=== PATIENT | male | born 1970 | race African-American/Black ===

== ENCOUNTER 2016-11-09 11:20 | Emergency (ER) | payer MEDICAID ==
[~2016-11-09] VITALS: Ht 180.3 cm; Wt 109.0 kg
[~2016-11-09 11:20] MED LIST: BENA20TA3; HCTZ
[2016-11-09 11:29] VITALS: BP 150/99
== END 2016-11-09 13:28 | disposition home or self-care (01) ==
LOC: ER 11:29
DX: S01.512A Laceration without foreign body of oral cavity, initial encounter (principal); S01.511A Laceration without foreign body of lip, initial encounter; I10 Essential (primary) hypertension; F17.200 Nicotine dependence, unspecified, uncomplicated; Y08.89XA Assault by other specified means, initial encounter; Y93.89 Activity, other specified; Y92.89 Other specified places as the place of occurrence of the external cause; Y99.8 Other external cause status
CPT/HCPCS: 99283

== ENCOUNTER 2017-07-11 03:38 | Emergency (ER) | payer MEDICAID ==
[~2017-07-11] VITALS: Ht 180.3 cm; Wt 117.0 kg
[2017-07-11] MEDS ORDERED: IPRATROPIUM BROMIDE (0.02%) 0.5MG/2.5ML NEB HHN STA (04:26)
[2017-07-11] MEDS ORDERED: ALBUTEROL (0.083%) 2.5MG/3ML NEB HHN STA (04:26)
[2017-07-11] MEDS ORDERED: PREDNISONE 20MG TABLET PO STA (04:26)
[2017-07-11] MEDS ORDERED: IPRATROPIUM/ALBUTEROL 0.5-3(2.5)MG/3ML NEB ONE (04:40)
[2017-07-11] MEDS ORDERED: ALBUTEROL (0.5%) 2.5MG/0.5ML NEB HHN ONE (04:40)
[2017-07-11 06:24] VITALS: BP 160/88
== END 2017-07-11 06:24 | disposition home or self-care (01) ==
LOC: ER 03:40
DX: J40 Bronchitis, not specified as acute or chronic (principal); J45.909 Unspecified asthma, uncomplicated; I10 Essential (primary) hypertension; F17.200 Nicotine dependence, unspecified, uncomplicated
CPT/HCPCS: 71010; 94640; 99283; J7512; J7611; J7620

== ENCOUNTER 2017-12-16 17:05 | Emergency (ER) | payer MEDICAID ==
[~2017-12-16] VITALS: Ht 170.2 cm; Wt 114.0 kg
[2017-12-16 17:25] VITALS: BP 149/105
[2017-12-19] MEDS ORDERED: PULM50 HHN (12:01)
[2017-12-19] MEDS ORDERED: COR12 PO (12:01)
[2017-12-19] MEDS ORDERED: BENA20TA3 PO (12:01)
== END 2017-12-16 22:09 | disposition left against medical advice (07) ==
LOC: ER 20:43
DX: R06.02 Shortness of breath (principal); R05 Cough; R07.89 Other chest pain
CPT/HCPCS: 93005; 99283

== ENCOUNTER 2018-03-28 16:52 | Emergency (ER) | payer MEDICAID, OTHER ==
[~2018-03-28] VITALS: Ht 180.3 cm; Wt 115.0 kg
[~2018-03-28 16:52] MED LIST changes: +BENA20TA10 PO; -BENA20TA3; +COR12 PO; -HCTZ; +PULM50 HHN
[2018-03-28 18:45] LABS: HEMATOCRIT. 43.2 % (42.0-52.0); HEMOGLOBIN. 14.4 g/dL (14.0-18.0); MEAN CORPUSCULAR HEMOGLOBIN 30.7 pg (28.0-32.0); MEAN CORPUSCULAR VOLUME 92.1 fL (80.0-94.0); MEAN PLATELET VOLUME 8.9 fl (7.4-10.4); PLATELET 194 x1000/uL (130-400); RED BLOOD CELL COUNT 4.69 mill/uL (4.7-6.1); RED CELL DISTRIBUTION WIDTH 14.2 % (11.6-14.6)
[2018-03-28] MEDS ORDERED: FUROSEMIDE 40MG/4ML VIAL IVP ONE (18:45)
[2018-03-28] MEDS ORDERED: METHYLPREDNISOLONE SOD SUCC 125 MG/2 ML VIAL IV ONE (18:45)
[2018-03-28] MEDS ORDERED: IPRATROPIUM/ALBUTEROL 0.5-3(2.5)MG/3ML NEB HHN ONE (18:45)
[2018-03-28 18:48] LABS: CHLORIDE 104 mEq/L (98-107)
[2018-03-28 18:52] LABS: INR 1.2; PARTIAL THROMBOPLASTIN TIME 25.7 sec (23.4-31.0); PROTHROMBIN TIME 11.7 sec (9.1-11.1)
[2018-03-28 19:15] LABS: PLATELET ESTIMATE NORMAL
[2018-03-28 20:55] VITALS: BP 128/90
== END 2018-03-28 20:58 | disposition home or self-care (01) ==
LOC: ER 16:52 → CANBEDREQ 22:27
DX: J44.9 Chronic obstructive pulmonary disease, unspecified (principal); I11.0 Hypertensive heart disease with heart failure; I50.9 Heart failure, unspecified; E78.00 Pure hypercholesterolemia, unspecified; F17.200 Nicotine dependence, unspecified, uncomplicated
CPT/HCPCS: 36415; 71045; 80053; 83880; 84484; 85025; 85610; 85730; 93005; 94640; 96374; 96375; 99285; J1940; J2930; J7620

== ENCOUNTER 2018-07-19 14:13 | Inpatient (IN) | payer MEDICAID, OTHER ==
[~2018-07-19] VITALS: Ht 180.3 cm; Wt 124.3 kg
[2018-07-19] MEDS ORDERED: IPRATROPIUM BROMIDE (0.02%) 0.5MG/2.5ML NEB HHN STA (17:59)
[2018-07-19] MEDS ORDERED: METHYLPREDNISOLONE SOD SUCC 125 MG/2 ML VIAL IV STA (17:59)
[2018-07-19] MEDS ORDERED: FUROSEMIDE 100MG/10ML VIAL IVP ONE (18:00)
[2018-07-19] MEDS ORDERED: ASPIRIN 81MG TABLET PO ONE (18:00)
[2018-07-19] MEDS: ALBUTEROL (0.083%) 2.5MG/3ML NEB HHN SCH ×2 (18:15→18:35)
[2018-07-19 18:27] LABS: HEMATOCRIT. 42.7 % (42.0-52.0); MEAN CORPUSCULAR HEMOGLOBIN 31.6 pg (28.0-32.0); MEAN CORPUSCULAR VOLUME 96.7 fL (80.0-94.0); MEAN PLATELET VOLUME 8.1 fl (7.4-10.4); PLATELET 216 x1000/uL (130-400); RED BLOOD CELL COUNT 4.42 mill/uL (4.7-6.1); RED CELL DISTRIBUTION WIDTH 15.5 % (11.6-14.6)
[2018-07-19 18:31] LABS: CHLORIDE 107 mEq/L (98-107)
[2018-07-19 18:57] LABS: PLATELET ESTIMATE NORMAL
[2018-07-19 23:13] VITALS: BP 129/96
[2018-07-19 23:23] VITALS: BP 129/96
[2018-07-19] MEDS ORDERED: ONDANSETRON HCL 4MG/2ML INJ IV PRN (23:45)
[2018-07-19] MEDS ORDERED: ACETAMINOPHEN 325MG TABLET PO PRN (23:45)
[2018-07-19] MEDS ORDERED: HYDROCODONE/ACETAMINOPHEN 5/325MG TABLET PO PRN (23:45)
[2018-07-20] MEDS: IPRATROPIUM/ALBUTEROL 0.5-3(2.5)MG/3ML NEB HHN SCH ×5 (00:47→16:22)
[2018-07-20 04:00] VITALS: BP 127/81
[2018-07-20 08:00] VITALS: BP 122/86
[2018-07-20] MEDS: FUROSEMIDE 40MG/4ML VIAL IVP SCH ×2 (08:50→17:13)
[2018-07-20] MEDS ORDERED: CARVEDILOL 12.5MG TABLET PO SCH (09:00)
[2018-07-20] MEDS ORDERED: BENAZEPRIL 10MG TABLET PO SCH (09:00)
[2018-07-20] MEDS ORDERED: MEDICATION NOT ON FORMULARY EA (Benazepril Hcl 20 MG) PO SCH (09:00)
[2018-07-20 12:00] VITALS: BP 112/75
[2018-07-20] MEDS: LOSARTAN POTASSIUM 50 MG TABLET PO SCH (15:15)
[2018-07-20] MEDS ORDERED: IPRATROPIUM/ALBUTEROL 0.5-3(2.5)MG/3ML NEB HHN PRN (15:30)
[2018-07-20] MEDS: BENZONATATE 100MG CAPSULE PO SCH ×2 (15:30→22:06)
[2018-07-20 16:00] VITALS: BP 113/80
[2018-07-20] MEDS ORDERED: PANTOPRAZOLE SODIUM 40 MG/VIAL IV SCH (16:00)
[2018-07-20] MEDS ORDERED: MONTELUKAST SODIUM 10MG TABLET PO SCH (17:00)
[2018-07-20] MEDS: LORATADINE 10MG TABLET PO SCH (17:13)
[2018-07-20] MEDS: PREDNISONE 20MG TABLET PO SCH (17:13)
[2018-07-20] MEDS ORDERED: ATORVASTATIN CALCIUM 20MG TABLET PO SCH (21:00)
[2018-07-20 21:35] VITALS: BP 121/86
[2018-07-20] MEDS: FAMOTIDINE 20MG/2ML VIAL IV SCH (22:05)
[2018-07-20] MEDS: CARVEDILOL 25MG TABLET PO SCH (22:06)
[2018-07-21] MEDS: IPRATROPIUM/ALBUTEROL 0.5-3(2.5)MG/3ML NEB HHN SCH ×4 (00:27→12:27)
[2018-07-21] MEDS: BUDESONIDE 0.5MG/2ML NEB HHN SCH ×2 (00:27→07:57)
[2018-07-21 00:29] VITALS: BP 118/72
[2018-07-21 04:00] VITALS: BP 124/64
[2018-07-21] MEDS: BENZONATATE 100MG CAPSULE PO SCH (05:11)
[2018-07-21 06:14] LABS: HEMATOCRIT. 41.1 % (42.0-52.0); HEMOGLOBIN. 13.4 g/dL (14.0-18.0); MEAN CORPUSCULAR HEMOGLOBIN 31.2 pg (28.0-32.0); MEAN CORPUSCULAR VOLUME 95.5 fL (80.0-94.0); MEAN PLATELET VOLUME 8.6 fl (7.4-10.4); PLATELET 233 x1000/uL (130-400); RED BLOOD CELL COUNT 4.31 mill/uL (4.7-6.1); RED CELL DISTRIBUTION WIDTH 15.2 % (11.6-14.6)
[2018-07-21 08:00] VITALS: BP 108/76
[2018-07-21] MEDS: PREDNISONE 20MG TABLET PO SCH (09:12)
[2018-07-21] MEDS: FUROSEMIDE 40MG/4ML VIAL IVP SCH (09:12)
[2018-07-21] MEDS: FAMOTIDINE 20MG/2ML VIAL IV SCH (09:12)
[2018-07-21] MEDS: CARVEDILOL 25MG TABLET PO SCH (09:22)
[2018-07-21] MEDS: LOSARTAN POTASSIUM 50 MG TABLET PO SCH (09:22)
[2018-07-21] MEDS: LORATADINE 10MG TABLET PO SCH (09:35)
[2018-07-21 10:42] LABS: CHLORIDE 103 mEq/L (98-107)
[2018-07-21 10:56] LABS: PLATELET ESTIMATE NORMAL
[2018-07-21 12:00] VITALS: BP 148/79
[2018-07-21 12:25] LABS: CLARITY URINE CLEAR (CLEAR); COLOR URINE YELLOW (YELLOW); KETONES URINE NEGATIVE (NEGATIVE); LEUKOCYTE ESTERASE URINE NEGATIVE (NEGATIVE); NITRITE URINE NEGATIVE (NEGATIVE); OCCULT BLOOD URINE NEGATIVE (NEGATIVE); PROTEIN URINE NEGATIVE (NEGATIVE); UROBILINOGEN URINE 0.2 E.U./dL (0.2-1.0)
[2018-07-21] MEDS ORDERED: DOCUSATE SODIUM 250MG CAPSULE PO SCH (12:30)
[2018-07-21] MEDS ORDERED: LACTULOSE 20G/30ML UDC PO ONE (12:30)
[2018-07-21] MEDS ORDERED: SPIRONOLACTONE 25MG TABLET PO SCH (12:45)
[2018-07-21] MEDS ORDERED: ALPRAZOLAM 0.25 MG TABLET PO PRN (12:45)
[2018-07-21 13:02] LABS: CANNABINOID URINE SCREEN NEGATIVE (NEGATIVE); PHENCYCLIDINE URINE SCREEN NEGATIVE (NEGATIVE)
[2018-07-21 13:03] LABS: *AMPHETAMINES SCREEN URINE NEGATIVE (NEGATIVE); *BARBITURATES SCREEN URINE NEGATIVE (NEGATIVE); *BENZODIAZEPINES SCREEN URINE NEGATIVE (NEGATIVE); *COCAINE SCREEN URINE PRESUMTIVE POSITIVE (NEGATIVE); METHADONE URINE SCREEN NEGATIVE (NEGATIVE); OPIATES URINE SCREEN NEGATIVE (NEGATIVE)
[2018-07-21] MEDS ORDERED: AZITHROMYCIN 500 MG TABLET PO NR (14:45)
[2018-07-22] MEDS ORDERED: AZITHROMYCIN 250 MG TABLET PO SCH (09:00)
== END 2018-07-21 15:20 | disposition left against medical advice (07) | DRG 816 ==
LOC: ER 14:13 → 7WST 20:55 → EDBEDREQ 20:58 → ENRESERV 21:52
PROVIDERS: ADMIT Internal Medicine; ATTEND Internal Medicine
DX: T40.5X1A Poisoning by cocaine, accidental (unintentional), initial encounter (principal); J96.00 Acute respiratory failure, unspecified whether with hypoxia or hypercapnia; I47.2 Ventricular tachycardia; I50.43 Acute on chronic combined systolic (congestive) and diastolic (congestive) heart failure; E44.0 Moderate protein-calorie malnutrition; J68.0 Bronchitis and pneumonitis due to chemicals, gases, fumes and vapors; I42.9 Cardiomyopathy, unspecified; J45.901 Unspecified asthma with (acute) exacerbation; R55 Syncope and collapse; J06.9 Acute upper respiratory infection, unspecified; I11.0 Hypertensive heart disease with heart failure; F41.9 Anxiety disorder, unspecified; F14.10 Cocaine abuse, uncomplicated; F17.210 Nicotine dependence, cigarettes, uncomplicated; E78.5 Hyperlipidemia, unspecified; E66.9 Obesity, unspecified; D17.79 Benign lipomatous neoplasm of other sites; I49.3 Ventricular premature depolarization; M94.0 Chondrocostal junction syndrome [Tietze]; Y92.89 Other specified places as the place of occurrence of the external cause; Z79.899 Other long term (current) drug therapy; Z68.38 Body mass index [BMI] 38.0-38.9, adult
CPT/HCPCS: 36415; 70360; 71045; 76700; 80048; 80076; 80305; 83735; 83880; 84484; 93005; 93306; 93970; 94640; 96374; 96375; 99285; J1940; J2930; J3490; J7512; J7611; J7620; J7626

== ENCOUNTER 2018-08-26 04:32 | Inpatient (IN) | payer MEDICAID ==
[~2018-08-26] VITALS: Ht 180.3 cm; Wt 122.9 kg
[2018-08-26] MEDS ORDERED: FUROSEMIDE 40MG/4ML VIAL IV ONE (05:15)
[2018-08-26] MEDS ORDERED: NITROGLYCERIN OINT 1GM/INCH UDPKT TD ONE (05:15)
[2018-08-26 05:36] LABS: CHLORIDE 103 mEq/L (98-107)
[2018-08-26 05:38] LABS: HEMATOCRIT. 42.1 % (42.0-52.0); MEAN CORPUSCULAR HEMOGLOBIN 31.4 pg (28.0-32.0); MEAN CORPUSCULAR VOLUME 94.7 fL (80.0-94.0); MEAN PLATELET VOLUME 7.9 fl (7.4-10.4); PLATELET 200 x1000/uL (130-400); RED BLOOD CELL COUNT 4.45 mill/uL (4.7-6.1); RED CELL DISTRIBUTION WIDTH 14.9 % (11.6-14.6)
[2018-08-26 06:46] LABS: PLATELET ESTIMATE NORMAL
[2018-08-26] MEDS ORDERED: ONDANSETRON HCL 4MG/2ML INJ IV PRN (10:00)
[2018-08-26] MEDS ORDERED: FUROSEMIDE 40MG/4ML VIAL IVP SCH (10:00)
[2018-08-26] MEDS ORDERED: ACETAMINOPHEN 325MG TABLET PO PRN (10:00)
[2018-08-26] MEDS ORDERED: GUAIFENESIN-DM 200MG-20MG/10ML UDC PO PRN (10:15)
[2018-08-26] MEDS: ENOXAPARIN 30MG/0.3ML SYR SUBCUT SCH ×3 (12:30→21:00)
[2018-08-26] MEDS: SPIRONOLACTONE 50MG TABLET PO SCH (13:31)
[2018-08-26] MEDS: METHYLPREDNISOLONE SOD SUCC 40 MG/ML VIAL IV SCH ×2 (13:32→21:31)
[2018-08-26] MEDS: IPRATROPIUM/ALBUTEROL 0.5-3(2.5)MG/3ML NEB HHN PRN (13:40)
[2018-08-26 15:19] VITALS: BP 132/87
[2018-08-26] MEDS: FUROSEMIDE 100MG/10ML VIAL IVP SCH (18:51)
[2018-08-26] MEDS: MONTELUKAST SODIUM 10MG TABLET PO SCH (18:51)
[2018-08-26 20:00] VITALS: BP_SYST 129; BP_DIAS 93; BP_DIAS 96
[2018-08-26] MEDS: GUAIFENESIN 600MG ER TABLET PO SCH (21:31)
[2018-08-26] MEDS: CARVEDILOL 6.25 MG TABLET PO SCH (21:32)
[2018-08-27] VITALS: BP 136/93
[2018-08-27] MEDS: IPRATROPIUM/ALBUTEROL 0.5-3(2.5)MG/3ML NEB HHN PRN ×3 (00:11→20:09)
[2018-08-27 04:00] VITALS: BP 132/86
[2018-08-27] MEDS: METHYLPREDNISOLONE SOD SUCC 40 MG/ML VIAL IV SCH ×2 (04:19→13:58)
[2018-08-27] MEDS: FUROSEMIDE 100MG/10ML VIAL IVP SCH ×2 (06:28→17:17)
[2018-08-27 07:03] LABS: BASOPHILS % 0.2 % (0.0-2.0); EOSINOPHILS % 0.2 % (0.0-5.0); HEMATOCRIT. 41.2 % (42.0-52.0); HEMOGLOBIN. 13.8 g/dL (14.0-18.0); LYMPHOCYTES % 9.6 % (20.0-50.0); MEAN CORPUSCULAR HEMOGLOBIN 31.5 pg (28.0-32.0); MEAN CORPUSCULAR VOLUME 94.3 fL (80.0-94.0); MEAN PLATELET VOLUME 8.2 fl (7.4-10.4); MONOCYTES % 3.1 % (2.0-8.0); NEUTROPHILS % 86.9 % (40.0-76.0); PLATELET 230 x1000/uL (130-400); RED BLOOD CELL COUNT 4.37 mill/uL (4.7-6.1); RED CELL DISTRIBUTION WIDTH 14.7 % (11.6-14.6)
[2018-08-27 08:00] VITALS: BP_SYST 118; BP_SYST 126; BP_DIAS 67; BP_DIAS 88
[2018-08-27] MEDS: ENOXAPARIN 30MG/0.3ML SYR SUBCUT SCH ×2 (09:00→21:00)
[2018-08-27 09:18] LABS: CHLORIDE 95 mEq/L (98-107)
[2018-08-27] MEDS: GUAIFENESIN 600MG ER TABLET PO SCH ×2 (09:38→21:52)
[2018-08-27] MEDS: SPIRONOLACTONE 50MG TABLET PO SCH (09:38)
[2018-08-27] MEDS: CARVEDILOL 6.25 MG TABLET PO SCH (09:39)
[2018-08-27 12:00] VITALS: BP 113/82
[2018-08-27 16:00] VITALS: BP 115/90
[2018-08-27 17:01] LABS: CLARITY URINE CLEAR (CLEAR); COLOR URINE YELLOW (YELLOW); KETONES URINE NEGATIVE (NEGATIVE); LEUKOCYTE ESTERASE URINE NEGATIVE (NEGATIVE); NITRITE URINE NEGATIVE (NEGATIVE); OCCULT BLOOD URINE NEGATIVE (NEGATIVE); PROTEIN URINE NEGATIVE (NEGATIVE); SPECIFIC GRAVITY URINE 1.009 (1.005-1.030)
[2018-08-27] MEDS: MONTELUKAST SODIUM 10MG TABLET PO SCH (17:17)
[2018-08-27 17:33] LABS: *AMPHETAMINES SCREEN URINE NEGATIVE (NEGATIVE); *BARBITURATES SCREEN URINE NEGATIVE (NEGATIVE); *BENZODIAZEPINES SCREEN URINE NEGATIVE (NEGATIVE); *COCAINE SCREEN URINE PRESUMTIVE POSITIVE (NEGATIVE); METHADONE URINE SCREEN NEGATIVE (NEGATIVE); OPIATES URINE SCREEN NEGATIVE (NEGATIVE)
[2018-08-27 17:34] LABS: CANNABINOID URINE SCREEN NEGATIVE (NEGATIVE); PHENCYCLIDINE URINE SCREEN NEGATIVE (NEGATIVE)
[2018-08-27 20:00] VITALS: BP 102/73
[2018-08-27] MEDS: CARVEDILOL 12.5MG TABLET PO SCH (21:53)
[2018-08-28] VITALS: BP 102/73
[2018-08-28] MEDS: IPRATROPIUM/ALBUTEROL 0.5-3(2.5)MG/3ML NEB HHN PRN ×3 (00:27→12:39)
[2018-08-28 07:33] LABS: CHLORIDE 92 mEq/L (98-107)
[2018-08-28 08:00] VITALS: BP 117/76
[2018-08-28] MEDS: GUAIFENESIN 600MG ER TABLET PO SCH (08:36)
[2018-08-28] MEDS: CARVEDILOL 12.5MG TABLET PO SCH (08:37)
[2018-08-28] MEDS: ENOXAPARIN 30MG/0.3ML SYR SUBCUT SCH (08:37)
[2018-08-28] MEDS: FUROSEMIDE 100MG/10ML VIAL IVP SCH (08:37)
[2018-08-28] MEDS ORDERED: SPIRONOLACTONE 50MG TABLET PO SCH (09:00)
[2018-08-28] MEDS ORDERED: PREDNISONE 20MG TABLET PO SCH (09:00)
[2018-08-28 11:16] VITALS: BP 117/76
== END 2018-08-28 13:05 | disposition home or self-care (01) | DRG 194 ==
LOC: ER 04:32 → 5WST 05:49 → EDBEDREQTM 05:50 → EDBEDREQ 05:50 → ENRESERV 10:01
PROVIDERS: ADMIT Internal Medicine; ATTEND Internal Medicine
DX: I13.0 Hypertensive heart and chronic kidney disease with heart failure and stage 1 through stage 4 chronic kidney disease, or unspecified chronic kidney disease (principal); N17.9 Acute kidney failure, unspecified; I27.20 Pulmonary hypertension, unspecified; E44.0 Moderate protein-calorie malnutrition; E66.01 Morbid (severe) obesity due to excess calories; J45.901 Unspecified asthma with (acute) exacerbation; R18.8 Other ascites; I50.23 Acute on chronic systolic (congestive) heart failure; I42.9 Cardiomyopathy, unspecified; G47.33 Obstructive sleep apnea (adult) (pediatric); N18.2 Chronic kidney disease, stage 2 (mild); F17.200 Nicotine dependence, unspecified, uncomplicated; J44.9 Chronic obstructive pulmonary disease, unspecified; Z91.19 Patient's noncompliance with other medical treatment and regimen; F14.90 Cocaine use, unspecified, uncomplicated; Z71.6 Tobacco abuse counseling; Z68.37 Body mass index [BMI] 37.0-37.9, adult
CPT/HCPCS: 36415; 71045; 76705; 80048; 80305; 83880; 84484; 93005; 93306; 94640; 96374; 96375; 99291; J1650; J1940; J2920; J7512; J7620

== ENCOUNTER 2019-01-15 13:15 | Emergency (ER) | payer MEDICAID, OTHER ==
[~2019-01-15] VITALS: Ht 180.3 cm; Wt 116.0 kg
[2019-01-15 17:45] LABS: HEMATOCRIT. 45.9 % (42.0-52.0); HEMOGLOBIN. 15.4 g/dL (14.0-18.0); MEAN CORPUSCULAR HEMOGLOBIN 31.9 pg (28.0-32.0); MEAN CORPUSCULAR VOLUME 94.9 fL (80.0-94.0); MEAN PLATELET VOLUME 8.5 fl (7.4-10.4); PLATELET 181 x1000/uL (130-400); RED BLOOD CELL COUNT 4.83 mill/uL (4.7-6.1); RED CELL DISTRIBUTION WIDTH 15.6 % (11.6-14.6)
[2019-01-15 17:51] LABS: CHLORIDE 99 mEq/L (98-107)
[2019-01-15 18:00] LABS: PLATELET ESTIMATE NORMAL
[2019-01-15] MEDS ORDERED: LEVOFLOXACIN 750MG PREMIX 150 ML IV ONE (18:00)
[2019-01-15] MEDS ORDERED: LIDOCAINE HCL/PF 1% 10 MG/ML 5ML VIAL IJ ONE (18:30)
[2019-01-15] MEDS ORDERED: SODIUM CHLORIDE 0.9% 1,000 ML IV ONE (18:42)
[2019-01-15 20:30] VITALS: BP 129/92
[2019-01-15] MEDS ORDERED: IPRATROPIUM/ALBUTEROL 0.5-3(2.5)MG/3ML NEB HHN PRN (20:45)
[2019-01-15] MEDS ORDERED: ONDANSETRON HCL 4MG/2ML INJ IV PRN (20:45)
[2019-01-15] MEDS ORDERED: FUROSEMIDE 40MG/4ML VIAL IVP ONE (20:45)
[2019-01-15] MEDS ORDERED: CEFTRIAXONE 1 G PREMIX 50 ML IV SCH (20:45)
[2019-01-15] MEDS ORDERED: ACETAMINOPHEN 325MG TABLET PO PRN (20:45)
[2019-01-15] MEDS ORDERED: CARVEDILOL 6.25 MG TABLET PO SCH (21:00)
[2019-01-16] MEDS ORDERED: AZITHROMYCIN 500 MG TABLET PO SCH (09:00)
[2019-01-16] MEDS ORDERED: LOSARTAN POTASSIUM 25 MG TABLET PO SCH (09:00)
[2019-01-16] MEDS ORDERED: POTASSIUM CHLORIDE 20MEQ TABLET SR PO SCH (09:00)
[2019-01-16] MEDS ORDERED: FUROSEMIDE 40MG/4ML VIAL IVP SCH (09:00)
== END 2019-01-15 20:59 | disposition left against medical advice (07) ==
LOC: ER 13:15 → EDBEDREQ 19:19 → CANRESERV 20:50 → ENRESERV 20:50 → ER 20:59 → CANBEDREQ 23:57
DX: J18.9 Pneumonia, unspecified organism (principal); L02.11 Cutaneous abscess of neck; R10.2 Pelvic and perineal pain; M79.604 Pain in right leg; M79.89 Other specified soft tissue disorders
CPT/HCPCS: 10060; 36415; 71045; 80053; 83880; 84484; 85025; 93005; 93970; 99284; J1956; J3490; J7030; Z7610

== ENCOUNTER 2019-04-21 16:23 | Emergency (ER) | payer MEDICAID, OTHER ==
[~2019-04-21] VITALS: Ht 180.3 cm; Wt 108.0 kg
[2019-04-21 17:30] VITALS: BP 122/98
[2019-04-22 00:25] LABS: HEMOGLOBIN. 14.5 g/dL (14.0-18.0); MEAN CORPUSCULAR HEMOGLOBIN 32.6 pg (28.0-32.0); MEAN CORPUSCULAR VOLUME 96.4 fL (80.0-94.0); MEAN PLATELET VOLUME 7.6 fl (7.4-10.4); PLATELET 181 x1000/uL (130-400); RED BLOOD CELL COUNT 4.46 mill/uL (4.7-6.1); RED CELL DISTRIBUTION WIDTH 17.7 % (11.6-14.6)
[2019-04-22 00:32] LABS: CHLORIDE 101 mEq/L (98-107)
[2019-04-22 07:41] LABS: PLATELET ESTIMATE NORMAL
== END 2019-04-22 01:23 | disposition home or self-care (01) ==
LOC: ER 16:23
DX: I13.0 Hypertensive heart and chronic kidney disease with heart failure and stage 1 through stage 4 chronic kidney disease, or unspecified chronic kidney disease (principal); I50.9 Heart failure, unspecified; N18.9 Chronic kidney disease, unspecified; J45.909 Unspecified asthma, uncomplicated; F17.200 Nicotine dependence, unspecified, uncomplicated
CPT/HCPCS: 36415; 71045; 83880; 84484; 93005; 99284

== ENCOUNTER 2019-08-18 17:09 | Inpatient (IN) | payer MEDICAID ==
[~2019-08-18] VITALS: Ht 185.4 cm; Wt 110.8 kg
[2019-08-18 19:22] LABS: HEMATOCRIT. 42.3 % (42.0-52.0); HEMOGLOBIN. 13.7 g/dL (14.0-18.0); MEAN CORPUSCULAR HEMOGLOBIN 31.8 pg (28.0-32.0); MEAN CORPUSCULAR VOLUME 97.8 fL (80.0-94.0); MEAN PLATELET VOLUME 8.3 fl (7.4-10.4); PLATELET 188 x1000/uL (130-400); RED BLOOD CELL COUNT 4.33 mill/uL (4.7-6.1); RED CELL DISTRIBUTION WIDTH 16.6 % (11.6-14.6)
[2019-08-18 19:26] LABS: CHLORIDE 105 mEq/L (98-107)
[2019-08-18 19:41] LABS: PLATELET ESTIMATE NORMAL
[2019-08-18] MEDS ORDERED: ASPIRIN 81MG TABLET PO ONE (20:00)
[2019-08-18] MEDS ORDERED: FUROSEMIDE 40MG/4ML VIAL IV ONE (20:00)
[2019-08-18] MEDS ORDERED: POTASSIUM CHLORIDE 20MEQ TABLET SR PO ONE (20:15)
[2019-08-18 23:00] VITALS: BP 137/89
[2019-08-18 23:17] VITALS: BP 137/89
[2019-08-18] MEDS ORDERED: FURO80TA87 PO (23:21)
[2019-08-18] MEDS ORDERED: AMLO2.5T45 PO (23:32)
[2019-08-19] MEDS ORDERED: DIPHENHYDRAMINE 50MG/ML VIAL IV PRN
[2019-08-19] MEDS ORDERED: ONDANSETRON HCL 4MG/2ML INJ IV PRN
[2019-08-19] MEDS ORDERED: ACETAMINOPHEN 325MG TABLET PO PRN
[2019-08-19] MEDS: IPRATROPIUM/ALBUTEROL 0.5-3(2.5)MG/3ML NEB HHN SCH ×4 (01:07→20:50)
[2019-08-19 04:00] VITALS: BP 123/86
[2019-08-19 07:06] LABS: BASOPHILS % 0.9 % (0.0-2.0); EOSINOPHILS % 14.7 % (0.0-5.0); HEMATOCRIT. 40.9 % (42.0-52.0); HEMOGLOBIN. 13.6 g/dL (14.0-18.0); LYMPHOCYTES % 25.1 % (20.0-50.0); MEAN CORPUSCULAR HEMOGLOBIN 32.2 pg (28.0-32.0); MEAN CORPUSCULAR VOLUME 96.9 fL (80.0-94.0); MEAN PLATELET VOLUME 8.6 fl (7.4-10.4); NEUTROPHILS % 48.3 % (40.0-76.0); PLATELET 178 x1000/uL (130-400); RED BLOOD CELL COUNT 4.22 mill/uL (4.7-6.1); RED CELL DISTRIBUTION WIDTH 16.7 % (11.6-14.6)
[2019-08-19 07:52] LABS: CHLORIDE 104 mEq/L (98-107)
[2019-08-19 08:00] VITALS: BP 123/90
[2019-08-19 08:05] LABS: CREATINE KINASE 150 IU/L (39-308)
[2019-08-19] MEDS ORDERED: FUROSEMIDE 40MG/4ML VIAL IVP SCH (09:00)
[2019-08-19] MEDS ORDERED: POTASSIUM CHLORIDE 20MEQ TABLET SR PO NR (09:30)
[2019-08-19] MEDS: ENOXAPARIN 30MG/0.3ML SYR SUBCUT SCH ×3 (09:39→20:45)
[2019-08-19 12:19] VITALS: BP 122/89
[2019-08-19 16:00] VITALS: BP 123/91
[2019-08-19] MEDS: FUROSEMIDE 100MG/10ML VIAL IVP SCH (16:19)
[2019-08-19] MEDS: LACTULOSE 20G/30ML UDC PO SCH (16:23)
[2019-08-19 20:18] VITALS: BP 112/73
[2019-08-19] MEDS: CARVEDILOL 6.25 MG TABLET PO SCH (20:43)
[2019-08-19] MEDS: CLOBETASOL 0.05 % CREAM 15GM TOP SCH (20:44)
[2019-08-19 21:04] LABS: *AMPHETAMINES SCREEN URINE NEGATIVE (NEGATIVE)
[2019-08-19 21:05] LABS: *BARBITURATES SCREEN URINE NEGATIVE (NEGATIVE); *BENZODIAZEPINES SCREEN URINE NEGATIVE (NEGATIVE); *COCAINE SCREEN URINE PRESUMTIVE POSITIVE (NEGATIVE); METHADONE URINE SCREEN NEGATIVE (NEGATIVE); OPIATES URINE SCREEN NEGATIVE (NEGATIVE)
[2019-08-19 21:06] LABS: CANNABINOID URINE SCREEN NEGATIVE (NEGATIVE); PHENCYCLIDINE URINE SCREEN NEGATIVE (NEGATIVE)
[2019-08-20] VITALS (7 sets, daily range): BP systolic 97–117; BP diastolic 51–89
[2019-08-20] MEDS: IPRATROPIUM/ALBUTEROL 0.5-3(2.5)MG/3ML NEB HHN SCH ×4 (02:14→20:04)
[2019-08-20] MEDS: FUROSEMIDE 100MG/10ML VIAL IVP SCH ×2 (06:47→17:41)
[2019-08-20 07:26] LABS: BASOPHILS % 0.5 % (0.0-2.0); EOSINOPHILS % 8.4 % (0.0-5.0); HEMATOCRIT. 44.6 % (42.0-52.0); HEMOGLOBIN. 14.8 g/dL (14.0-18.0); LYMPHOCYTES % 21.7 % (20.0-50.0); MEAN CORPUSCULAR HEMOGLOBIN 32.4 pg (28.0-32.0); MEAN CORPUSCULAR VOLUME 97.9 fL (80.0-94.0); MEAN PLATELET VOLUME 9.1 fl (7.4-10.4); MONOCYTES % 12.6 % (2.0-8.0); NEUTROPHILS % 56.8 % (40.0-76.0); PLATELET 187 x1000/uL (130-400); RED BLOOD CELL COUNT 4.56 mill/uL (4.7-6.1); RED CELL DISTRIBUTION WIDTH 16.5 % (11.6-14.6)
[2019-08-20 07:55] LABS: CHLORIDE 102 mEq/L (98-107)
[2019-08-20] MEDS ORDERED: ASPIRIN 81MG TABLET PO SCH (09:00)
[2019-08-20] MEDS: ENOXAPARIN 30MG/0.3ML SYR SUBCUT SCH ×2 (09:00→21:00)
[2019-08-20] MEDS: LACTULOSE 20G/30ML UDC PO SCH ×2 (09:38→17:39)
[2019-08-20] MEDS: CARVEDILOL 6.25 MG TABLET PO SCH ×2 (09:38→21:20)
[2019-08-20] MEDS: LOSARTAN POTASSIUM 25 MG TABLET PO SCH (09:38)
[2019-08-20] MEDS: POTASSIUM CHLORIDE 20MEQ TABLET SR PO SCH (09:38)
[2019-08-20] MEDS: CLOBETASOL 0.05 % CREAM 15GM TOP SCH ×2 (09:49→21:20)
[2019-08-20] MEDS ORDERED: FLUTICASONE/VILANTEROL 200-25 BLST.W.DEV ORI SCH (11:45)
[2019-08-20] MEDS: BUDESONIDE 0.5MG/2ML NEB HHN SCH ×2 (13:35→20:05)
[2019-08-21] VITALS: BP 101/75
[2019-08-21] MEDS: IPRATROPIUM/ALBUTEROL 0.5-3(2.5)MG/3ML NEB HHN SCH ×4 (02:00→20:46)
[2019-08-21 04:00] VITALS: BP 109/64
[2019-08-21] MEDS: FUROSEMIDE 100MG/10ML VIAL IVP SCH (06:13)
[2019-08-21 07:42] LABS: BASOPHILS % 0.8 % (0.0-2.0); CHLORIDE 101 mEq/L (98-107); EOSINOPHILS % 3.1 % (0.0-5.0); HEMATOCRIT. 42.1 % (42.0-52.0); HEMOGLOBIN. 14.3 g/dL (14.0-18.0); LYMPHOCYTES % 18.3 % (20.0-50.0); MEAN CORPUSCULAR HEMOGLOBIN 32.8 pg (28.0-32.0); MEAN CORPUSCULAR VOLUME 96.7 fL (80.0-94.0); MEAN PLATELET VOLUME 9.3 fl (7.4-10.4); MONOCYTES % 13.9 % (2.0-8.0); NEUTROPHILS % 63.9 % (40.0-76.0); PLATELET 202 x1000/uL (130-400); RED BLOOD CELL COUNT 4.36 mill/uL (4.7-6.1); RED CELL DISTRIBUTION WIDTH 16.2 % (11.6-14.6)
[2019-08-21 08:00] VITALS: BP 98/70
[2019-08-21] MEDS: ENOXAPARIN 30MG/0.3ML SYR SUBCUT SCH ×2 (08:03→21:00)
[2019-08-21] MEDS: BUDESONIDE 0.5MG/2ML NEB HHN SCH ×2 (08:56→20:46)
[2019-08-21] MEDS: LOSARTAN POTASSIUM 25 MG TABLET PO SCH (09:00)
[2019-08-21] MEDS ORDERED: METOLAZONE 2.5MG TABLET PO SCH (09:00)
[2019-08-21] MEDS: CARVEDILOL 6.25 MG TABLET PO SCH ×2 (09:00→21:00)
[2019-08-21] MEDS: POTASSIUM CHLORIDE 20MEQ TABLET SR PO SCH (09:09)
[2019-08-21] MEDS: BENZONATATE 100MG CAPSULE PO PRN ×2 (09:09→18:10)
[2019-08-21] MEDS: CLOBETASOL 0.05 % CREAM 15GM TOP SCH ×2 (09:10→21:12)
[2019-08-21] MEDS: LACTULOSE 20G/30ML UDC PO SCH ×3 (09:10→17:07)
[2019-08-21 12:00] VITALS: BP 103/76
[2019-08-21 12:00] LABS: INR 1.5; PARTIAL THROMBOPLASTIN TIME 29.5 sec (23.4-31.0); PROTHROMBIN TIME 15.4 sec (9.6-11.0)
[2019-08-21] MEDS ORDERED: LIDOCAINE HCL 1% 20ML VIAL (Pyxis) INJ ONE (13:15)
[2019-08-21] MEDS ORDERED: SODIUM BICARBONATE 4% (2.4MEQ) 5ML VIAL IV ONE (13:16)
[2019-08-21 16:00] VITALS: BP 108/74
[2019-08-21 20:35] VITALS: BP 101/80
[2019-08-22 00:42] VITALS: BP 110/76
[2019-08-22] MEDS: IPRATROPIUM/ALBUTEROL 0.5-3(2.5)MG/3ML NEB HHN SCH ×4 (02:58→20:54)
[2019-08-22 04:00] VITALS: BP 117/47
[2019-08-22 07:10] LABS: HEMATOCRIT. 44.4 % (42.0-52.0); HEMOGLOBIN. 14.6 g/dL (14.0-18.0); MEAN CORPUSCULAR HEMOGLOBIN 31.8 pg (28.0-32.0); MEAN CORPUSCULAR VOLUME 96.9 fL (80.0-94.0); MEAN PLATELET VOLUME 9.1 fl (7.4-10.4); PLATELET 215 x1000/uL (130-400); RED BLOOD CELL COUNT 4.58 mill/uL (4.7-6.1); RED CELL DISTRIBUTION WIDTH 16.1 % (11.6-14.6)
[2019-08-22 08:00] VITALS: BP 109/70
[2019-08-22] MEDS: BUDESONIDE 0.5MG/2ML NEB HHN SCH ×2 (08:01→20:53)
[2019-08-22] MEDS ORDERED: SODIUM CHLORIDE 0.9% 250 ML IV ONE (08:30)
[2019-08-22] MEDS: LACTULOSE 20G/30ML UDC PO SCH ×2 (08:46→17:34)
[2019-08-22] MEDS: LOSARTAN POTASSIUM 25 MG TABLET PO SCH (08:47)
[2019-08-22] MEDS: CARVEDILOL 6.25 MG TABLET PO SCH ×2 (08:47→23:58)
[2019-08-22] MEDS: ENOXAPARIN 30MG/0.3ML SYR SUBCUT SCH ×2 (08:48→21:00)
[2019-08-22] MEDS: POTASSIUM CHLORIDE 20MEQ TABLET SR PO SCH (08:48)
[2019-08-22] MEDS: CLOBETASOL 0.05 % CREAM 15GM TOP SCH ×2 (08:49→23:57)
[2019-08-22] MEDS ORDERED: METHYLPREDNISOLONE SOD SUCC 125 MG/2 ML VIAL IV NR (09:12)
[2019-08-22 12:00] VITALS: BP 115/81
[2019-08-22] MEDS ORDERED: FUROSEMIDE 40MG/4ML VIAL IVP NR (13:13)
[2019-08-22] MEDS ORDERED: ALBUMIN HUMAN 25GM/100ML (25%) IV NR (15:00)
[2019-08-22 16:43] LABS: CLARITY URINE CLEAR (CLEAR); COLOR URINE YELLOW (YELLOW); KETONES URINE NEGATIVE (NEGATIVE); LEUKOCYTE ESTERASE URINE NEGATIVE (NEGATIVE); NITRITE URINE NEGATIVE (NEGATIVE); OCCULT BLOOD URINE NEGATIVE (NEGATIVE); PROTEIN URINE TRACE (NEGATIVE); SPECIFIC GRAVITY URINE 1.009 (1.005-1.030)
[2019-08-22 16:56] LABS: SODIUM URINE RANDOM 76 mEq/L
[2019-08-22 17:01] LABS: UREA NITROGEN URINE RANDOM 187 mg/dL
[2019-08-22] MEDS: PREDNISONE 20MG TABLET PO SCH (17:34)
[2019-08-22 20:00] VITALS: BP 113/82
[2019-08-23] VITALS: BP 112/78
[2019-08-23] MEDS: IPRATROPIUM/ALBUTEROL 0.5-3(2.5)MG/3ML NEB HHN SCH ×4 (01:27→21:30)
[2019-08-23 04:00] VITALS: BP 104/62
[2019-08-23] MEDS: BUDESONIDE 0.5MG/2ML NEB HHN SCH (07:32)
[2019-08-23 08:22] LABS: HEMATOCRIT. 43.5 % (42.0-52.0); HEMOGLOBIN. 14.5 g/dL (14.0-18.0); MEAN CORPUSCULAR HEMOGLOBIN 32.2 pg (28.0-32.0); MEAN CORPUSCULAR VOLUME 96.6 fL (80.0-94.0); MEAN PLATELET VOLUME 9.2 fl (7.4-10.4); PLATELET 232 x1000/uL (130-400)
[2019-08-23 08:23] VITALS: BP 99/74
[2019-08-23 08:42] LABS: CHLORIDE 98 mEq/L (98-107)
[2019-08-23] MEDS: CARVEDILOL 6.25 MG TABLET PO SCH ×2 (08:45→22:07)
[2019-08-23] MEDS: LACTULOSE 20G/30ML UDC PO SCH ×2 (08:46→19:08)
[2019-08-23] MEDS: ENOXAPARIN 30MG/0.3ML SYR SUBCUT SCH ×2 (08:47→21:00)
[2019-08-23] MEDS: PREDNISONE 20MG TABLET PO SCH ×2 (08:47→19:09)
[2019-08-23] MEDS: CLOBETASOL 0.05 % CREAM 15GM TOP SCH ×2 (08:47→22:10)
[2019-08-23 08:49] LABS: PHOSPHORUS 4.3 mg/dL (2.5-4.9)
[2019-08-23 08:52] LABS: CREATINE KINASE 171 IU/L (39-308)
[2019-08-23 10:21] LABS: HEPATITIS A AB IGM NEGATIVE (NEGATIVE); HEPATITIS B SURFACE ANTIGEN NEGATIVE
[2019-08-23 12:34] VITALS: BP 114/70
[2019-08-23 15:55] VITALS: BP 108/77
[2019-08-23 15:59] LABS: PLATELET ESTIMATE NORMAL
[2019-08-23 20:00] VITALS: BP 110/86
[2019-08-23] MEDS: FUROSEMIDE 40MG TABLET PO SCH (22:06)
[2019-08-24] VITALS: BP 106/78
[2019-08-24] MEDS: BUDESONIDE 0.5MG/2ML NEB HHN SCH ×2 (01:11→08:20)
[2019-08-24] MEDS: IPRATROPIUM/ALBUTEROL 0.5-3(2.5)MG/3ML NEB HHN SCH ×3 (01:11→14:14)
[2019-08-24 04:00] VITALS: BP 108/75
[2019-08-24 06:11] LABS: HEMATOCRIT. 38.5 % (42.0-52.0); MEAN CORPUSCULAR HEMOGLOBIN 32.8 pg (28.0-32.0); MEAN CORPUSCULAR VOLUME 96.8 fL (80.0-94.0); MEAN PLATELET VOLUME 9.2 fl (7.4-10.4); PLATELET 206 x1000/uL (130-400); RED BLOOD CELL COUNT 3.97 mill/uL (4.7-6.1); RED CELL DISTRIBUTION WIDTH 15.5 % (11.6-14.6)
[2019-08-24 07:51] LABS: CHLORIDE 99 mEq/L (98-107)
[2019-08-24 07:57] LABS: PHOSPHORUS 3.2 mg/dL (2.5-4.9)
[2019-08-24] MEDS: ENOXAPARIN 30MG/0.3ML SYR SUBCUT SCH (09:00)
[2019-08-24] MEDS: FUROSEMIDE 40MG TABLET PO SCH (09:12)
[2019-08-24] MEDS: PREDNISONE 20MG TABLET PO SCH (09:12)
[2019-08-24] MEDS: LACTULOSE 20G/30ML UDC PO SCH (09:13)
[2019-08-24] MEDS: CARVEDILOL 6.25 MG TABLET PO SCH (09:13)
[2019-08-24] MEDS: CLOBETASOL 0.05 % CREAM 15GM TOP SCH (09:13)
[2019-08-24 12:40] LABS: PLATELET ESTIMATE NORMAL
[2019-08-24 13:51] VITALS: BP 105/77
[2019-08-24 14:52] LABS: PLATELET ESTIMATE NORMAL
== END 2019-08-24 14:40 | disposition home or self-care (01) | DRG 194 ==
LOC: ER 17:09 → EDBEDREQ 20:02 → ENRESERV 21:50 → 6WST 23:06
PROVIDERS: ADMIT Internal Medicine; ATTEND Internal Medicine
PROC: 0W9G3ZZ Drainage of Peritoneal Cavity, Percutaneous Approach (ICD-10-PCS; principal; 2019-08-21)
DX: I11.0 Hypertensive heart disease with heart failure (principal); J96.01 Acute respiratory failure with hypoxia; E44.0 Moderate protein-calorie malnutrition; N17.9 Acute kidney failure, unspecified; D68.9 Coagulation defect, unspecified; E87.1 Hypo-osmolality and hyponatremia; I08.3 Combined rheumatic disorders of mitral, aortic and tricuspid valves; I27.20 Pulmonary hypertension, unspecified; I50.23 Acute on chronic systolic (congestive) heart failure; I42.9 Cardiomyopathy, unspecified; J45.909 Unspecified asthma, uncomplicated; E87.6 Hypokalemia; F14.129 Cocaine abuse with intoxication, unspecified; R18.8 Other ascites; J20.9 Acute bronchitis, unspecified; F17.200 Nicotine dependence, unspecified, uncomplicated; Z83.3 Family history of diabetes mellitus; Z79.899 Other long term (current) drug therapy; Z82.49 Family history of ischemic heart disease and other diseases of the circulatory system; Z71.6 Tobacco abuse counseling; Z68.32 Body mass index [BMI] 32.0-32.9, adult
CPT/HCPCS: 36415; 49083; 71045; 76700; 76705; 78582; 80048; 80053; 80305; 81003; 82550; 82553; 83735; 83880; 84100; 84300; 84484; 84540; 85025; 86705; 86709; 86803; 87340; 93005; 93306; 93970; 94640; 96374; 99285; A9558; J1200; J1650; J1940; J2930; J3490; J7512; J7620; J7626; P9047

== ENCOUNTER 2019-12-08 13:16 | Inpatient (IN) | payer MEDICAID ==
[~2019-12-08] VITALS: Ht 203.2 cm; Wt 127.0 kg
[2019-12-08 16:15] LABS: HEMATOCRIT. 39.6 % (42.0-52.0); HEMOGLOBIN. 13.4 g/dL (14.0-18.0); MEAN CORPUSCULAR HEMOGLOBIN 32.6 pg (28.0-32.0); MEAN CORPUSCULAR VOLUME 96.8 fL (80.0-94.0); PLATELET 190 x1000/uL (130-400); RED BLOOD CELL COUNT 4.09 mill/uL (4.7-6.1); RED CELL DISTRIBUTION WIDTH 16.7 % (11.6-14.6)
[2019-12-08 16:20] LABS: CHLORIDE 105 mEq/L (98-107)
[2019-12-08 16:23] LABS: INR 1.5; PROTHROMBIN TIME 15.7 sec (9.6-11.0)
[2019-12-08 16:28] LABS: CLARITY URINE CLEAR (CLEAR); COLOR URINE YELLOW (YELLOW); KETONES URINE NEGATIVE (NEGATIVE); LEUKOCYTE ESTERASE URINE NEGATIVE (NEGATIVE); NITRITE URINE NEGATIVE (NEGATIVE); OCCULT BLOOD URINE NEGATIVE (NEGATIVE); PH URINE 5.5 (4.5-8.0); PROTEIN URINE TRACE (NEGATIVE); SPECIFIC GRAVITY URINE 1.014 (1.005-1.030)
[2019-12-08 16:31] LABS: PLATELET ESTIMATE NORMAL
[2019-12-08] MEDS ORDERED: FUROSEMIDE 40MG/4ML VIAL IVP ONE (16:45)
[2019-12-08] MEDS ORDERED: MAGNESIUM/ALUMINUM HYDROXIDE/SIMETHICONE 30ML UDC PO PRN (23:15)
[2019-12-08] MEDS ORDERED: ONDANSETRON HCL 4MG/2ML INJ IV PRN (23:15)
[2019-12-08] MEDS ORDERED: CLONIDINE 0.1MG TABLET PO PRN (23:15)
[2019-12-08] MEDS ORDERED: ACETAMINOPHEN 325MG TABLET PO PRN (23:15)
[2019-12-09 02:07] VITALS: BP 135/91
[2019-12-09 05:27] VITALS: BP 136/99
[2019-12-09 06:50] LABS: BASOPHILS % 1.2 % (0.0-2.0); EOSINOPHILS % 24.3 % (0.0-5.0); HEMATOCRIT. 39.8 % (42.0-52.0); HEMOGLOBIN. 13.4 g/dL (14.0-18.0); MEAN CORPUSCULAR HEMOGLOBIN 32.7 pg (28.0-32.0); MEAN PLATELET VOLUME 8.3 fl (7.4-10.4); MONOCYTES % 11.7 % (2.0-8.0); NEUTROPHILS % 51.8 % (40.0-76.0); PLATELET 207 x1000/uL (130-400); RED CELL DISTRIBUTION WIDTH 16.9 % (11.6-14.6)
[2019-12-09 07:57] LABS: CHLORIDE 105 mEq/L (98-107)
[2019-12-09 08:00] VITALS: BP 118/95
[2019-12-09] MEDS ORDERED: PNEUMOCOCCAL 23-VAL P-SAC VAC 0.5 ML IM ONE (08:00)
[2019-12-09 08:08] LABS: CREATINE KINASE MB FRACTION 3.2 ng/mL (0.5-3.6)
[2019-12-09 08:10] LABS: LDL CHOLESTEROL 92 mg/dL (5-100)
[2019-12-09 08:12] LABS: CREATINE KINASE 303 IU/L (39-308)
[2019-12-09 08:13] LABS: HDL CHOLESTEROL 26 mg/dL (40-59)
[2019-12-09 08:15] LABS: CREATINE KINASE MB FRACTION 4.1 ng/mL (0.5-3.6)
[2019-12-09] MEDS: ENOXAPARIN 30MG/0.3ML SYR SUBCUT SCH ×3 (08:50→21:10)
[2019-12-09] MEDS ORDERED: FUROSEMIDE 40MG/4ML VIAL IV SCH (09:00)
[2019-12-09] MEDS: IPRATROPIUM/ALBUTEROL 0.5-3(2.5)MG/3ML NEB NEB PRN (10:39)
[2019-12-09 12:00] VITALS: BP 135/93
[2019-12-09] MEDS: DOCUSATE SODIUM 100MG CAPSULE PO PRN (18:22)
[2019-12-09] MEDS: FUROSEMIDE 100MG/10ML VIAL IV SCH (18:25)
[2019-12-09 20:00] VITALS: BP 131/100
[2019-12-09] MEDS: HYDROCODONE/ACETAMINOPHEN 5/325MG TABLET PO PRN (21:09)
[2019-12-10] VITALS: BP 128/96
[2019-12-10 00:30] VITALS: BP 128/96
[2019-12-10 04:00] VITALS: BP 123/97
[2019-12-10 05:00] VITALS: BP 123/97
[2019-12-10] MEDS: FUROSEMIDE 100MG/10ML VIAL IV SCH ×2 (06:25→18:09)
[2019-12-10] MEDS: ENOXAPARIN 30MG/0.3ML SYR SUBCUT SCH ×2 (09:43→21:00)
[2019-12-10] MEDS: SPIRONOLACTONE 25MG TABLET PO SCH (09:43)
[2019-12-10 10:52] LABS: CHLORIDE 101 mEq/L (98-107)
[2019-12-10] MEDS: HYDROCODONE/ACETAMINOPHEN 5/325MG TABLET PO PRN ×2 (11:22→22:07)
[2019-12-10] MEDS: IPRATROPIUM/ALBUTEROL 0.5-3(2.5)MG/3ML NEB NEB PRN (12:00)
[2019-12-10] MEDS ORDERED: DIPHENHYDRAMINE HCL/ZINC ACET 28 GM CREAM TOP PRN (13:00)
[2019-12-10] MEDS ORDERED: LACTULOSE 20G/30ML UDC PO NR (13:00)
[2019-12-10] MEDS: LOSARTAN POTASSIUM 25 MG TABLET PO SCH (14:17)
[2019-12-10 20:52] VITALS: BP 128/86
[2019-12-11 00:32] VITALS: BP 143/86
[2019-12-11 04:30] VITALS: BP 134/90
[2019-12-11] MEDS: FUROSEMIDE 100MG/10ML VIAL IV SCH ×2 (06:12→17:15)
[2019-12-11 06:57] LABS: HEMATOCRIT. 41.5 % (42.0-52.0); HEMOGLOBIN. 13.6 g/dL (14.0-18.0); MEAN CORPUSCULAR HEMOGLOBIN 32.2 pg (28.0-32.0); MEAN PLATELET VOLUME 8.4 fl (7.4-10.4); PLATELET 182 x1000/uL (130-400); RED BLOOD CELL COUNT 4.24 mill/uL (4.7-6.1); RED CELL DISTRIBUTION WIDTH 17.2 % (11.6-14.6)
[2019-12-11 07:24] LABS: CHLORIDE 101 mEq/L (98-107)
[2019-12-11] MEDS: SPIRONOLACTONE 25MG TABLET PO SCH (09:00)
[2019-12-11] MEDS: ENOXAPARIN 30MG/0.3ML SYR SUBCUT SCH ×2 (09:00→20:30)
[2019-12-11] MEDS: LOSARTAN POTASSIUM 25 MG TABLET PO SCH (09:00)
[2019-12-11] MEDS: DOCUSATE SODIUM 100MG CAPSULE PO PRN (10:38)
[2019-12-11] MEDS: HYDROCODONE/ACETAMINOPHEN 5/325MG TABLET PO PRN ×2 (10:47→18:20)
[2019-12-11 13:49] LABS: PLATELET ESTIMATE NORMAL
[2019-12-11 20:00] VITALS: BP 117/91
[2019-12-11] MEDS ORDERED: CARVEDILOL 12.5MG TABLET PO SCH (21:00)
[2019-12-11] MEDS: PIPERONYL/PYRETHRINS (RID)120 ML SHAMPOO TOP SCH ×2 (22:00→22:43)
[2019-12-11 22:42] LABS: *AMPHETAMINES SCREEN URINE NEGATIVE (NEGATIVE); *BARBITURATES SCREEN URINE NEGATIVE (NEGATIVE); CANNABINOID URINE SCREEN NEGATIVE (NEGATIVE); METHADONE URINE SCREEN NEGATIVE (NEGATIVE); OPIATES URINE SCREEN NEGATIVE (NEGATIVE); PHENCYCLIDINE URINE SCREEN NEGATIVE (NEGATIVE)
[2019-12-11 22:43] LABS: *BENZODIAZEPINES SCREEN URINE NEGATIVE (NEGATIVE); *COCAINE SCREEN URINE PRESUMTIVE POSITIVE (NEGATIVE)
[2019-12-11] MEDS: PERMETHRIN 5% CREAM 60GM TOP NR ×2 (22:43→23:24)
[2019-12-11] MEDS ORDERED: IVERMECTIN 3 MG TABLET PO NR (23:00)
[2019-12-12] VITALS: BP 108/76
[2019-12-12] MEDS: IPRATROPIUM/ALBUTEROL 0.5-3(2.5)MG/3ML NEB NEB PRN ×3 (02:09→09:57)
[2019-12-12 04:00] VITALS: BP 110/81
[2019-12-12 06:02] LABS: BASOPHILS % 0.9 % (0.0-2.0); EOSINOPHILS % 8.1 % (0.0-5.0); HEMATOCRIT. 42.2 % (42.0-52.0); HEMOGLOBIN. 14.1 g/dL (14.0-18.0); LYMPHOCYTES % 12.9 % (20.0-50.0); MEAN CORPUSCULAR HEMOGLOBIN 32.5 pg (28.0-32.0); MEAN CORPUSCULAR VOLUME 97.3 fL (80.0-94.0); MEAN PLATELET VOLUME 8.2 fl (7.4-10.4); MONOCYTES % 11.2 % (2.0-8.0); NEUTROPHILS % 66.9 % (40.0-76.0); PLATELET 181 x1000/uL (130-400); RED BLOOD CELL COUNT 4.34 mill/uL (4.7-6.1); RED CELL DISTRIBUTION WIDTH 16.8 % (11.6-14.6)
[2019-12-12 06:20] LABS: CHLORIDE 99 mEq/L (98-107)
[2019-12-12] MEDS: FUROSEMIDE 100MG/10ML VIAL IV SCH (07:15)
[2019-12-12 08:00] VITALS: BP 119/82
[2019-12-12] MEDS: SPIRONOLACTONE 25MG TABLET PO SCH (08:39)
[2019-12-12 12:00] VITALS: BP 118/78
[2019-12-12] MEDS ORDERED: SPIR25TA PO (13:32)
[2019-12-12] MEDS ORDERED: FURO80TA3 MT (13:32)
== END 2019-12-12 12:55 | disposition left against medical advice (07) | DRG 194 ==
LOC: ER 13:16 → 6WST 18:29 → EDBEDREQ 18:38 → ENRESERV 22:20
PROVIDERS: ADMIT Internal Medicine; ATTEND Internal Medicine
DX: I13.0 Hypertensive heart and chronic kidney disease with heart failure and stage 1 through stage 4 chronic kidney disease, or unspecified chronic kidney disease (principal); E11.22 Type 2 diabetes mellitus with diabetic chronic kidney disease; D72.1 Eosinophilia; E44.0 Moderate protein-calorie malnutrition; I27.20 Pulmonary hypertension, unspecified; R18.8 Other ascites; I50.23 Acute on chronic systolic (congestive) heart failure; E66.9 Obesity, unspecified; F14.90 Cocaine use, unspecified, uncomplicated; I42.9 Cardiomyopathy, unspecified; N18.9 Chronic kidney disease, unspecified; I34.0 Nonrheumatic mitral (valve) insufficiency; D64.9 Anemia, unspecified; T50.1X5A Adverse effect of loop [high-ceiling] diuretics, initial encounter; D53.9 Nutritional anemia, unspecified; D72.810 Lymphocytopenia; J45.909 Unspecified asthma, uncomplicated; Z72.0 Tobacco use; Z68.30 Body mass index [BMI] 30.0-30.9, adult; Z79.899 Other long term (current) drug therapy; Y92.89 Other specified places as the place of occurrence of the external cause
CPT/HCPCS: 36415; 71045; 76700; 80048; 80053; 80061; 80305; 81003; 82550; 82553; 83735; 83880; 84439; 84443; 84484; 85025; 87077; 87186; 93005; 99285; J1650; J1940

== ENCOUNTER 2020-03-08 07:26 | Inpatient (IN) | payer MEDICAID ==
[~2020-03-08] VITALS: Ht 180.3 cm; Wt 112.5 kg
[~2020-03-08 07:26] MED LIST changes: +FURO80TA3 MT; +SPIR25TA PO
[2020-03-08] MEDS ORDERED: ENALAPRIL 1.25MG/ML VIAL 1ML IV ONE (08:00)
[2020-03-08] MEDS ORDERED: MORPHINE SULFATE 4 MG/ML CPJ (NOT FOR IM USE) IV ONE (08:00)
[2020-03-08] MEDS ORDERED: FUROSEMIDE 40MG/4ML VIAL IVP ONE (08:00)
[2020-03-08] MEDS ORDERED: ENALAPRIL 2.5MG/2ML VIAL 2ML IV ONE (08:00)
[2020-03-08] MEDS ORDERED: ASPIRIN 325MG EC TABLET PO ONE (08:15)
[2020-03-08 08:29] LABS: EOSINOPHILS % 12.1 % (0.0-5.0); HEMATOCRIT. 40.5 % (42.0-52.0); HEMOGLOBIN. 13.4 g/dL (14.0-18.0); LYMPHOCYTES % 11.1 % (20.0-50.0); MEAN CORPUSCULAR HEMOGLOBIN 32.3 pg (28.0-32.0); MEAN CORPUSCULAR VOLUME 97.9 fL (80.0-94.0); MONOCYTES % 13.2 % (2.0-8.0); NEUTROPHILS % 62.6 % (40.0-76.0); PLATELET 140 x1000/uL (130-400); RED BLOOD CELL COUNT 4.14 mill/uL (4.7-6.1); RED CELL DISTRIBUTION WIDTH 16.5 % (11.6-14.6)
[2020-03-08 08:33] LABS: CHLORIDE 106 mEq/L (98-107)
[2020-03-08 11:00] VITALS: BP 116/85
[2020-03-08] MEDS ORDERED: IPRATROPIUM/ALBUTEROL 0.5-3(2.5)MG/3ML NEB HHN PRN (11:30)
[2020-03-08] MEDS ORDERED: ACETAMINOPHEN 325MG TABLET PO PRN (11:30)
[2020-03-08] MEDS ORDERED: ONDANSETRON HCL 4MG/2ML INJ IV PRN (11:30)
[2020-03-08] MEDS: ENOXAPARIN 30MG/0.3ML SYR SUBCUT SCH ×2 (11:30→20:51)
[2020-03-08] MEDS ORDERED: DIPHENHYDRAMINE 25MG CAPSULE PO PRN (15:30)
[2020-03-08] MEDS ORDERED: FUROSEMIDE 40MG/4ML VIAL IVP NR (15:30)
[2020-03-08 16:00] VITALS: BP 128/86
[2020-03-08] MEDS: FUROSEMIDE 40MG/4ML VIAL IVP SCH (17:07)
[2020-03-08 20:00] VITALS: BP 129/96
[2020-03-09 00:01] VITALS: BP 124/85
[2020-03-09 04:00] VITALS: BP 128/97
[2020-03-09] MEDS: FUROSEMIDE 40MG/4ML VIAL IVP SCH ×2 (06:24→16:53)
[2020-03-09 06:48] LABS: CHLORIDE 103 mEq/L (98-107)
[2020-03-09 08:00] VITALS: BP 122/83
[2020-03-09] MEDS: ENOXAPARIN 30MG/0.3ML SYR SUBCUT SCH ×2 (09:00→21:00)
[2020-03-09] MEDS: ASPIRIN 81MG TABLET PO SCH (09:06)
[2020-03-09 12:00] VITALS: BP 117/85
[2020-03-09 12:37] LABS: INR 1.6; PARTIAL THROMBOPLASTIN TIME 31.9 sec (23.4-31.0); PROTHROMBIN TIME 16.4 sec (9.6-11.0)
[2020-03-09] MEDS ORDERED: DOCUSATE SODIUM 250MG CAPSULE PO PRN (12:45)
[2020-03-09] MEDS ORDERED: METOLAZONE 5MG TABLET PO SCH (14:00)
[2020-03-09] MEDS ORDERED: SODIUM BICARBONATE 4% (2.4MEQ) 5ML VIAL IV ONE (15:07)
[2020-03-09] MEDS ORDERED: LIDOCAINE HCL 1% 20ML VIAL (Pyxis) INJ ONE (15:07)
[2020-03-09 16:00] VITALS: BP 116/85
[2020-03-09 20:00] VITALS: BP 126/85
[2020-03-09] MEDS: LOSARTAN POTASSIUM 25 MG TABLET PO SCH (20:00)
[2020-03-09] MEDS: SPIRONOLACTONE 25MG TABLET PO SCH (20:29)
[2020-03-09] MEDS: CARVEDILOL 12.5MG TABLET PO SCH (21:00)
[2020-03-10] VITALS: BP 118/75
[2020-03-10 03:39] VITALS: BP 104/76
[2020-03-10] MEDS: FUROSEMIDE 40MG/4ML VIAL IVP SCH (06:19)
[2020-03-10 06:47] LABS: CHLORIDE 103 mEq/L (98-107)
[2020-03-10 08:00] VITALS: BP 122/86
[2020-03-10 08:02] VITALS: BP 120/86
[2020-03-10] MEDS: ASPIRIN 81MG TABLET PO SCH (09:14)
[2020-03-10] MEDS: CARVEDILOL 12.5MG TABLET PO SCH (09:14)
[2020-03-10] MEDS: ENOXAPARIN 30MG/0.3ML SYR SUBCUT SCH (09:14)
[2020-03-10] MEDS: LOSARTAN POTASSIUM 25 MG TABLET PO SCH (09:15)
[2020-03-10] MEDS: SPIRONOLACTONE 25MG TABLET PO SCH (09:15)
[2020-03-10 11:49] VITALS: BP 106/84
[2020-03-10] MEDS ORDERED: FURO80TA3 MT (13:50)
[2020-03-10] MEDS ORDERED: BENA20TA10 PO (13:50)
[2020-03-10] MEDS ORDERED: METO2.5T14 MT (13:50)
[2020-03-10] MEDS ORDERED: SPIR25TA PO (13:50)
[2020-03-10] MEDS ORDERED: COR12 PO (13:50)
[2020-03-10 13:57] VITALS: BP 106/84
== END 2020-03-10 14:35 | disposition home or self-care (01) | DRG 194 ==
LOC: ER 07:26 → 8WST 09:14 → ENRESERV 10:05 → ER 10:45 → 8WST 14:19
PROVIDERS: ADMIT Internal Medicine; ATTEND Internal Medicine
PROC: 0W9G3ZZ Drainage of Peritoneal Cavity, Percutaneous Approach (ICD-10-PCS; principal; 2020-03-10)
DX: I11.0 Hypertensive heart disease with heart failure (principal); N17.0 Acute kidney failure with tubular necrosis; I50.23 Acute on chronic systolic (congestive) heart failure; I34.0 Nonrheumatic mitral (valve) insufficiency; J45.909 Unspecified asthma, uncomplicated; E66.9 Obesity, unspecified; I27.20 Pulmonary hypertension, unspecified; I42.9 Cardiomyopathy, unspecified; F14.90 Cocaine use, unspecified, uncomplicated; T63.301A Toxic effect of unspecified spider venom, accidental (unintentional), initial encounter; E44.1 Mild protein-calorie malnutrition; S81.812A Laceration without foreign body, left lower leg, initial encounter; R00.0 Tachycardia, unspecified; R18.8 Other ascites; F17.200 Nicotine dependence, unspecified, uncomplicated; E11.9 Type 2 diabetes mellitus without complications; I36.1 Nonrheumatic tricuspid (valve) insufficiency; Z79.84 Long term (current) use of oral hypoglycemic drugs; Z79.899 Other long term (current) drug therapy; Z68.34 Body mass index [BMI] 34.0-34.9, adult; Y92.89 Other specified places as the place of occurrence of the external cause; R65.11 Systemic inflammatory response syndrome (SIRS) of non-infectious origin with acute organ dysfunction
CPT/HCPCS: 36415; 49083; 71045; 76705; 80048; 80053; 83880; 84484; 85025; 85049; 93005; 93306; 94640; 99285; J1650; J1940; J2270; J3490; Q0163

== ENCOUNTER 2020-07-20 11:09 | Emergency (ER) | payer MEDICAID ==
[~2020-07-20] VITALS: Ht 180.3 cm; Wt 97.0 kg
[~2020-07-20 11:09] MED LIST changes: +METO2.5T14 MT
[2020-07-20 11:22] VITALS: BP 137/94
== END 2020-07-20 19:35 | disposition left against medical advice (07) ==
LOC: ER 11:09
DX: Z53.21 Procedure and treatment not carried out due to patient leaving prior to being seen by health care provider (principal)

== ENCOUNTER 2020-09-14 07:03 | Emergency (ER) | payer MEDICAID ==
[~2020-09-14] VITALS: Ht 180.3 cm; Wt 113.0 kg
[~2020-09-14 07:03] MED LIST changes: -COR12 PO; -FURO80TA3 MT; -METO2.5T14 MT; +METO2.5T2 MT
[2020-09-14] MEDS ORDERED: ASPIRIN 81MG TABLET PO ONE (08:00)
[2020-09-14] MEDS ORDERED: FUROSEMIDE 40MG/4ML VIAL IV ONE (08:00)
[2020-09-14 08:58] LABS: HEMOGLOBIN. 13.5 g/dL (14.0-18.0); MEAN CORPUSCULAR HEMOGLOBIN 31.9 pg (28.0-32.0); MEAN CORPUSCULAR VOLUME 96.9 fL (80.0-94.0); MEAN PLATELET VOLUME 8.7 fl (7.4-10.4); PLATELET 194 x1000/uL (130-400); RED BLOOD CELL COUNT 4.23 mill/uL (4.7-6.1); RED CELL DISTRIBUTION WIDTH 16.7 % (11.6-14.6)
[2020-09-14 09:02] LABS: CHLORIDE 102 mEq/L (98-107)
[2020-09-14 09:05] LABS: INR 1.4; PROTHROMBIN TIME 14.7 sec (9.6-11.0)
[2020-09-14 12:24] LABS: PLATELET ESTIMATE NORMAL
[2020-09-14] MEDS ORDERED: LIDOCAINE HCL 1% 20ML VIAL (Pyxis) INJ ONE (13:51)
[2020-09-14] MEDS ORDERED: SODIUM BICARBONATE 4% (2.4MEQ) 5ML VIAL IV ONE (13:52)
[2020-09-14] MEDS ORDERED: BUMETANIDE 1MG/4ML VIAL IV SCH (14:00)
[2020-09-14] MEDS ORDERED: METOLAZONE 2.5MG TABLET PO NR (14:00)
[2020-09-14] MEDS ORDERED: ONDANSETRON HCL 4MG/2ML INJ IV PRN (14:00)
[2020-09-14] MEDS ORDERED: ACETAMINOPHEN 325MG TABLET PO PRN (14:00)
[2020-09-14 16:10] VITALS: BP 136/74
[2020-09-14] MEDS ORDERED: ENOXAPARIN 30MG/0.3ML SYR SUBCUT SCH (21:00)
[2020-09-14] MEDS ORDERED: CARVEDILOL 6.25 MG TABLET PO SCH (21:00)
[2020-09-15] MEDS ORDERED: LOSARTAN POTASSIUM 25 MG TABLET PO SCH (09:00)
== END 2020-09-14 18:54 | disposition left against medical advice (07) ==
LOC: ER 07:03 → ENRESERV 14:51 → CANRESERV 16:03 → ENRESERV 16:03 → ER 18:54 → CANBEDREQ 09-15 08:13
DX: I11.0 Hypertensive heart disease with heart failure (principal); I50.9 Heart failure, unspecified; R18.8 Other ascites; J45.909 Unspecified asthma, uncomplicated; Z20.822 Contact with and (suspected) exposure to COVID-19
CPT/HCPCS: 32555; 36415; 49083; 71045; 76604; 80053; 83880; 84484; 85025; 85610; 87070; 87205; 87426; 88108; 88312; 89050; 93005; 96374; 99285; J1940; J3490; Z7610